=== PATIENT | female | born 1965 | race Caucasian/White ===

== ENCOUNTER 2020-05-25 17:36 | Outpatient (REF) | payer OTHER, SELFPAY ==
--- NOTE | 2020-05-25 | MM_ITS ---
EXAMINATION: MM SCREENING DIGITAL BREAST TOMOSYNTHESIS, BILATERAL CLINICAL INFORMATION: Screening. Asymptomatic. The lifetime risk of breast cancer based on the Tyrer-Cuzick Model is 14.5%. COMPARISON: Mammography: February 05, 2019 and studies dating back to November 01, 2014 TECHNIQUE: Digital breast tomosynthesis is performed in both the craniocaudal and mediolateral oblique views along with computer-aided detection (CAD). Synthesized 2D images are generated from the tomosynthesis. FINDINGS: The breasts are almost entirely fatty (ACR BI-RADS breast composition Category a). There are no significant masses, abnormal calcifications, or other abnormalities. MM/MM tomosynthesis screening BI IMPRESSION: There are no significant changes from prior study. ASSESSMENT: BI-RADS 1: Negative RECOMMENDATION: Routine annual mammography screening. This patient's information was entered into a reminder system with a target due date for their next mammogram.
== END 2020-05-25 17:37 | disposition home or self-care (01) ==
LOC: HO.MAMMO 17:36
PROVIDERS: PCP Internal Medicine; Visit Provider Advanced Practice Midwife
DX: Z12.31 Encounter for screening mammogram for malignant neoplasm of breast (principal)
CPT/HCPCS: 77063; 77067

== ENCOUNTER 2022-12-07 08:43 | Outpatient (REF) | payer OTHER, SELFPAY ==
[2022-12-07 11:07] LABS: Alanine Aminotransferase 13 U/L (0-31); Albumin Level 4.3 g/dL (3.5-5.0); Alkaline Phosphatase 67 U/L (39-117); Anion Gap 13 (12-20); Aspartate Amino Transferase 18 U/L (5-31); Bilirubin Total 0.5 mg/dL (0.0-1.0); Blood Urea Nitrogen 16 mg/dL (9-16); Calcium 10.1 mg/dL (8.4-10.2); Carbon Dioxide 28 mmol/L (22-29); Chloride 103 mmol/L (96-108); Cholesterol 251 mg/dL; Estimated Glomerular Filt Rate > 60; Glucose Fasting 96 mg/dL (60-99); HDL Cholesterol 59 mg/dL; LDL Cholesterol Calculated 175 mg/dl; Potassium 4.1 mmol/L (3.3-5.1); Sodium 140 mmol/L (135-145); Total Protein 7.5 g/dL (6.5-8.0); Triglycerides 89 mg/dL
== END 2022-12-07 08:44 | disposition home or self-care (01) ==
LOC: HO.LAB 08:43
PROVIDERS: PCP Internal Medicine; Visit Provider Internal Medicine
DX: Z00.00 Encounter for general adult medical examination without abnormal findings (principal)
CPT/HCPCS: 36415; 80053; 80061

== ENCOUNTER 2022-12-26 08:23 | Outpatient (REF) | payer OTHER, SELFPAY ==
--- NOTE | ~2022-12-26 | US_ITS ---
EXAMINATION: US ABDOMEN LIMITED CLINICAL INFORMATION: Abdominal mass, left lumbar region. COMPARISON: None available. TECHNIQUE: Real-time imaging of the area indicated by patient, left lumbar area. The area was examined in both the supine and upright position. FINDINGS: No mass, hernia or fluid collection is seen. US/US abdomen limited IMPRESSION: No abnormality is seen.
== END 2022-12-26 08:24 | disposition home or self-care (01) ==
LOC: HO.HMGCX 08:23
PROVIDERS: PCP Internal Medicine; Visit Provider Nurse Practitioner Family
DX: R19.00 Intra-abdominal and pelvic swelling, mass and lump, unspecified site (principal)
CPT/HCPCS: 76705

== ENCOUNTER 2023-02-04 10:25 | Outpatient (AMB) | payer OTHER, SELFPAY ==
[2023-02-04 10:28] VITALS: BMI 28.1
--- NOTE | 2023-02-04 10:28 | A.OFFVIS_ITS ---
Intake Vital Signs 02/04/23 10:28 Height 5 ft 4 in Weight 164 lb BMI 28.1 Intake Visit Reasons: Intra abd & pelvic mass/lump Intake Note: This patient presents for an assessment for intra abdominal and pelvic mass/lump. Patient c/o; reports feeling lump RLQ region, denies pain, reports discomfort when sitting or when it is pressed on. Director Furniture Required: No Accompanied by: Self / Same As Patient Allergies No Known Allergies Allergy (Verified 02/04/23 10:34) HPI HPI Comments History of Present Illness Details Patient presents for evaluation of a left flank deeply situated intramuscular mass. She has had this least 6-7 months time. His increasing size, become more symptomatic. She wished to have this evaluated removed. Chart was reviewed and patient evaluated. [facility] Surgical History History of section History of left oophorectomy History of surgery Family History Father Alcoholism Mother Hypertension Brain tumor Maternal Grandmother Breast cancer Sister Coronary artery disease Brother Coronary artery disease Social History Housing: House Alcohol intake: current Alcohol intake frequency: holidays/special occasions only Alcohol type: beer, wine and hard liquor Patient Tobacco Use Status: Former Tobacco user Tobacco use type: Cigarette e-Cigarette/Vaping Use: Never Used Second Hand Smoke Exposure: No service: No Current occupational status: employed Current occupational exposures/hazards: No Cognitive needs: No Hearing needs: No Vision needs: No Physical Exam Vital Signs: BMI result Body Mass Index 28.1 GI Other: Moderately corpulent abdomen. Left flank demonstrates approximately 6 x 5 cm mass suggestive of a intramuscular lipoma. Assessment & Plan Assessment & Plan (1) Abdominal lump: Code(s): R19.00 - Intra-abdominal and pelvic swelling, mass and lump, unspecified site Plan: Current plan is to obtain MRI to further evaluate this process and rule out a neoplastic mass prior to excision. Orders: Orders MR abdomen wo/w con Today R19.00 - Intra-abdominal and pelvic swelling, mass and lump, unspecified site Coding Level of Care Code New Pt Level 4 (98469) Diagnoses Abdominal lump R19.00
== END 2023-02-04 10:39 | disposition home or self-care (01) ==
PROVIDERS: PCP Internal Medicine; Referring Provider Internal Medicine; Visit Provider Surgery
DX: R19.00 Intra-abdominal and pelvic swelling, mass and lump, unspecified site (principal)
CPT/HCPCS: 99204

== ENCOUNTER → 2023-02-04 10:25 | Outpatient (BNVA) | payer OTHER, SELFPAY | PROVIDERS: PCP Internal Medicine; Referring Provider Internal Medicine; Visit Provider Surgery ==

== ENCOUNTER 2023-03-21 14:09 | Outpatient (REF) | payer OTHER, SELFPAY ==
[2023-03-21 15:29] LABS: Alanine Aminotransferase 15 U/L (0-31); Albumin Level 4.4 g/dL (3.5-5.0); Alkaline Phosphatase 55 U/L (39-117); Anion Gap 18 (12-20); Aspartate Amino Transferase 21 U/L (5-31); Bilirubin Total 0.7 mg/dL (0.0-1.0); Blood Urea Nitrogen 13 mg/dL (9-16); Calcium 10.1 mg/dL (8.4-10.2); Carbon Dioxide 24 mmol/L (22-29); Chloride 98 mmol/L (96-108); Estimated Glomerular Filt Rate > 60; Glucose Fasting 84 mg/dL (60-99); Sodium 136 mmol/L (135-145); Total Protein 7.3 g/dL (6.5-8.0)
== END 2023-03-21 14:10 | disposition home or self-care (01) ==
LOC: HO.CT 14:09
PROVIDERS: Nurse Practitioner Family; PCP Internal Medicine; Visit Provider Surgery
DX: R19.00 Intra-abdominal and pelvic swelling, mass and lump, unspecified site (principal); I10 Essential (primary) hypertension; E78.5 Hyperlipidemia, unspecified
CPT/HCPCS: 36415; 74170; 80053; Q9967

== ENCOUNTER 2023-03-27 13:04 | Outpatient (AMB) | payer OTHER, SELFPAY ==
[2023-03-27 13:15] VITALS: BP 161/91; PULSE 77; BMI 27.6
--- NOTE | 2023-03-27 13:15 | MHC.OFFVIS ---
Intake Vital Signs 03/27/23 13:15 Height 5 ft 4 in Weight 161 lb BMI 27.6 BP 161/91 H Blood Pressure Location Rt brachial Position Sitting Pulse 77 Intake Visit Reasons: Abdominal lump, CT results Intake Note: Patient here to discuss abd ct scan results from 03-21-23. Social Work Case Manager Required: No Accompanied by: Self / Same As Patient Allergies No Known Allergies Allergy (Verified 03/27/23 13:17) HPI HPI Comments History of Present Illness Details Patient presents for follow-up. She has persistence of her left flank mass in discomfort. CT scan is consistent with a left spigelian hernia. [facility] Surgical History History of surgery History of left oophorectomy History of section Family History Father Alcoholism Mother Hypertension Brain tumor Maternal Grandmother Breast cancer Sister Coronary artery disease Brother Coronary artery disease Social History Housing: House Alcohol intake: current Alcohol intake frequency: holidays/special occasions only Alcohol type: beer, wine and hard liquor Patient Tobacco Use Status: Former Tobacco user Tobacco use type: Cigarette e-Cigarette/Vaping Use: Never Used Second Hand Smoke Exposure: No service: No Current occupational status: employed Current occupational exposures/hazards: No Cognitive needs: No Hearing needs: No Vision needs: No Physical Exam Vital Signs: Last Vital Signs Pulse 77 03/27/23 13:15 BP 161/91 H 03/27/23 13:15 BMI result Body Mass Index 27.6 Chest Other: Chest breath sounds bilaterally, HS 1 in 2 GI Other: Abdomen soft, moderately corpulent. Left lower lateral abdominal wall mass consistent with patient's spigelian hernia. Assessment & Plan Assessment & Plan (1) Spigelian hernia: Code(s): K43.9 - Ventral hernia without obstruction or gangrene Plan Patient wishes to undergo repair of this. His become more symptomatic enlarging. Risks, benefits, alternatives of open repair of left spigelian hernia with possible mesh were reviewed the patient and included but not limited to bleeding, infection, recurrence, numbness, pain, scarring the patient wishes to proceed. All questions were answered. Arrangements were made for this. Coding Level of Care Code Est Pt Level 5 (83707) Diagnoses Spigelian hernia K43.9
== END 2023-03-27 13:39 | disposition home or self-care (01) ==
PROVIDERS: PCP Internal Medicine; Visit Provider Surgery
DX: K43.9 Ventral hernia without obstruction or gangrene (principal)
CPT/HCPCS: 99214

== ENCOUNTER → 2023-03-27 13:04 | Outpatient (BNVA) | payer OTHER, SELFPAY | PROVIDERS: PCP Internal Medicine; Visit Provider Surgery ==

== ENCOUNTER 2023-04-10 07:40 | Day surgery (SDC) | payer OTHER, SELFPAY ==
[2023-04-08 10:52] VITALS: BMI 26.8
--- NOTE | 2023-04-09 10:46 | HO.ANESPROP2 ---
Documented by User: Nohemi Saucedo NP 04/09/23 10:47 HPI - Anesthesia Eval Consult details Narrative: 58yo F for Open repair of spigelian hernia w/mesh PMFSH Active Problems Active Problems: All Active Problems (Updated 04/08/23 @ 10:51 by Kamala Benítez RN) Spigelian hernia (Acute) Hyperlipidemia (Acute) Abdominal lump (Acute) Class 1 obesity with body mass index (BMI) of 32.0 to 32.9 in adult (Acute) Mild persistent asthma (Acute) Essential hypertension (Acute) Physical exam (Acute) Past Medical History Medical History Insomnia Asthma OAB (overactive bladder) HTN (hypertension) Family History Family History Father Alcoholism Mother Hypertension Brain tumor Maternal Grandmother Breast cancer Sister Coronary artery disease Brother Coronary artery disease Surgical History Surgical History History of right oophorectomy History of surgery History of left oophorectomy History of section Social History Social History Household Members: Family Housing: House Are you a primary point of care technician to a significant other at home: No Do you presently have visiting nurse or other home services: No Alcohol intake: current Alcohol intake frequency: holidays/special occasions only Alcohol type: beer, wine and hard liquor Patient Tobacco Use Status: Former Tobacco user Quit Date: 22 years Tobacco use type: Cigarette e-Cigarette/Vaping Use: Never Used Second Hand Smoke Exposure: No service: No Current occupational status: employed Current occupational exposures/hazards: No Cognitive needs: No Hearing needs: No Vision needs: No Meds Allergies Allergy/AdvReac Type Severity Reaction Status Date / Time adhesive tape Allergy Intermediate Skin Verified 04/10/23 07:52 blistered Exam Exam Date and Time: April 09, 2023 1046 Height,Weight and Vital Signs: Height 5 ft 4 in Weight 70.76 kg Pertinent Lab Results Pertinent Lab Results: Laboratory Tests 03/21/23 14:16 Sodium 136 Potassium 4.0 Chloride 98 Carbon Dioxide 24 BUN 13 Creatinine 0.73 Assessment and Plan Assessment Anesthesia Assessment: Chart Reviewed Documented by User: Ciarra Morse MD 04/10/23 13:15 PMFSH Active Problems Active Problems: All Active Problems (Updated 04/10/23 @ 08:58 by Ciarra Morse MD) Spigelian hernia (Acute) Hyperlipidemia (Acute) Abdominal lump (Acute) Class 1 obesity with body mass index (BMI) of 32.0 to 32.9 in adult (Acute) Mild persistent asthma (Acute) Essential hypertension (Acute) Physical exam (Acute) ?BIPIN Past Medical History Medical History Insomnia Asthma OAB (overactive bladder) HTN (hypertension) Family History Family History Father Alcoholism Mother Hypertension Brain tumor Maternal Grandmother Breast cancer Sister Coronary artery disease Brother Coronary artery disease Family history of problems with anesthesia: No Surgical History Surgical History History of right oophorectomy History of surgery History of left oophorectomy History of section History of Problems with Anesthesia: No Social History Social History Household Members: Family Housing: House Are you a primary point of care technician to a significant other at home: No Do you presently have visiting nurse or other home services: No Alcohol intake: current Alcohol intake frequency: holidays/special occasions only Alcohol type: beer, wine and hard liquor Patient Tobacco Use Status: Former Tobacco user Quit Date: 22 years Tobacco use type: Cigarette e-Cigarette/Vaping Use: Never Used Second Hand Smoke Exposure: No service: No Current occupational status: employed Current occupational exposures/hazards: No Cognitive needs: No Hearing needs: No Vision needs: No Meds Allergies Allergy/AdvReac Type Severity Reaction Status Date / Time adhesive tape Allergy Intermediate Skin Verified 04/10/23 07:52 blistered Exam Height,Weight and Vital Signs: Height 5 ft 4 in Weight 70.76 kg Vital Signs Temp Pulse Resp BP Pulse Ox O2 Del Method 97.2 F 65 16 163/91 H 98 Room Air 04/10/23 08:01 04/10/23 08:01 04/10/23 08:01 04/10/23 08:01 04/10/23 08:01 04/10/23 08:01 Airway Mallampati Class: II TM Dist: >3cm Neck ROM: Full Loose/Missing/Broken Teeth: No (Denies broken, loose, missing teeth) Heart: RRR Lungs: CTAB Assessment and Plan Assessment Anesthesia Assessment: Anesthesia Plan Discussed Final Anesthetic Review Family History of Problems with Anesthesia: No History of Problems with Anesthesia: No NPO: Yes ASA Class: II Final Preanesthetic Review: No Changes in Pt Med Stat, Meds/Allgs Chart Reviewed, Consent Obtained/Reviewed and Anes Risks/Benef Reviewed Patient Risk: Intermediate Procedure Risk: Low Assessment/Block/Sedation in SS: Assess/Block/Sedation-SS Anesthetic Plan Anesthetic Plan: GA and MAC: Disposition: Standard PACU
--- NOTE | 2023-04-09 13:32 | MHC.SHP ---
Pre-Procedural Eval Section A Date of Service: 04/09/23 The patient is an INPATIENT: No Changes since office visit: No Cold of Flu in the past 2 weeks, No New Medical Problems, No Changes in Medication and No Patient answered all questions The History & Physical has been completed within 30 days and I have reviewed it.: Yes Section B Chief Complaint: Ventral hernia without obstruction or gangrene Allergies: Allergies Allergy/AdvReac Type Severity Reaction Status Date / Time adhesive tape Allergy Intermediate Skin Verified 04/08/23 10:59 blistered Plan I have reviewed the history and physical and performed a pertinent physical examination on my patient. No changes have occurred unless specified. Time Spent With Patient Time: Total time managing care of this patient today ____ minutes.
[2023-04-10 07:47] VITALS: BMI 26.6
[2023-04-10 08:01] VITALS: BP 163/91; PULSE 65; RESP 16; TEMP 36.2; O2SAT 98
[2023-04-10] MEDS: Lactated Ringers 1,000 ML 100 ML IVCONT (08:12)
[2023-04-10 10:32] VITALS: BP 143/76; PULSE 61; RESP 14; TEMP 36.1; O2SAT 97
[2023-04-10 10:37] VITALS: BP 151/73; PULSE 54; RESP 16; O2SAT 99
[2023-04-10 10:42] VITALS: BP 172/82; PULSE 49; RESP 16; O2SAT 99
[2023-04-10] MEDS: Acetaminophen 325 MG TABLET 650 MG PO (10:44)
[2023-04-10] MEDS: oxyCODONE HCl Immed Release 5 MG TABLET 10 MG PO (10:45)
[2023-04-10 10:47] VITALS: BP 175/87; PULSE 54; RESP 16; O2SAT 99
--- NOTE | 2023-04-10 10:57 | W.PM.OPN ---
Operative Note Operative Note Date of Service: 04/10/23 Narrative: Preoperative diagnosis: [] Left lower abdomen incarcerated spigelian hernia Postop diagnosis: [] Same Procedure [] open repair of spigelian hernia with Bard mesh Surgeon: [] Brandt Graphics Manager: [] Derick Type of Anesthesia: [] General Indication for surgery: [] Left lower quadrant incarcerated spigelian hernia with omental contents. Defect measured approximately 4 cm. Findings: [] Patient brought to the operating room, placed on operative table in supine position, after adequate level of general anesthesia was induced, the patient's abdomen was prepped and draped in usual sterile fashion. Using a transverse incision over the left lower quadrant over the spigelian hernia, this carried down through skin, subcutaneous tissue, dissection down to the external oblique muscle. Fascia margins were where large hernia sac with incarcerated omental contents was found. This was circumferentially dissected down and opened. Incarcerated omentum was amputated using clamp, 2-0 ties along with hernia sac which was amputated using Bovie. Margins were circumferentially cleared. A Bard mesh was placed in this defect and the superficial layer of the mesh was circumferentially sutured to the surrounding abdominal wall structures using interrupted 0 Ethibond sutures. At completion the procedure, mesh was in good position with no gaps or tension. Wounds irrigated, secured hemostasis. Was closed in the following manner; running 2-0 Vicryl suture used to reapproximate external oblique muscle. Interrupted inverted deep dermal 3-0 Vicryl sutures followed by running subcuticular 4-0 Vicryl suture placed. Steri-Strips and sterile dressings were applied. Wound was infiltrated 0.5% Marcaine/1% lidocaine at completion. Sponge, needle, and instrument counts reported correct. Patient tolerated the procedure well and emerged anesthesia stable condition. EBL minimal
[2023-04-10 11:02] VITALS: BP 164/89; PULSE 51; RESP 16; TEMP 36.1; O2SAT 98
== END 2023-04-10 11:37 | disposition home or self-care (01) ==
PROVIDERS: PCP Internal Medicine; Visit Provider Surgery
PROC: (CPT 49594; principal; 2023-04-10 09:30)
DX: K43.6 Other and unspecified ventral hernia with obstruction, without gangrene (principal); I10 Essential (primary) hypertension; E78.5 Hyperlipidemia, unspecified; J45.30 Mild persistent asthma, uncomplicated; E66.8 Other obesity; Z68.27 Body mass index [BMI] 27.0-27.9, adult; L23.1 Allergic contact dermatitis due to adhesives; Z87.891 Personal history of nicotine dependence
CPT/HCPCS: 49594; 88302; C1781; J0690; J1885; J2405; J3010

== ENCOUNTER → 2023-04-10 07:40 | Outpatient (BNV) | payer OTHER, SELFPAY | PROVIDERS: PCP Internal Medicine; Visit Provider Surgery | DX: K43.6 Other and unspecified ventral hernia with obstruction, without gangrene (principal) | CPT/HCPCS: 49616 ==

== ENCOUNTER 2023-04-22 08:47 | Outpatient (AMB) | payer OTHER, SELFPAY ==
[2023-04-22 08:58] VITALS: BP 202/102; PULSE 67
--- NOTE | 2023-04-22 08:58 | A.OFFVIS_ITS ---
Intake Vital Signs 04/22/23 08:58 Weight 163 lb BP 202/102 H Blood Pressure Location Rt brachial Position Sitting Pulse 67 Intake Visit Reasons: S/p repair of left spigelian hernia Intake Note: Patient here s/p repair Lt spigelian hernia. Reports incision healing well. Denies bleeding, oozing, itch. [facility] Director Required: No Accompanied by: Self / Same As Patient Allergies adhesive tape Allergy (Intermediate, Verified 04/22/23 09:00) Skin blistered HPI HPI Comments History of Present Illness Details Patient presents for follow-up. She has no wound issues or complaints. She is increasing her activity level. Patient is tolerating her diet. She is having regular bowel habits. COUNT INCLUDES THE [facility] Medical History Insomnia Asthma OAB (overactive bladder) HTN (hypertension) Surgical History Spigelian hernia (04/10/23) History of right oophorectomy History of surgery History of left oophorectomy History of section Family History Father Alcoholism Mother Hypertension Brain tumor Maternal Grandmother Breast cancer Sister Coronary artery disease Brother Coronary artery disease Social History Household Members: Family Housing: House Are you a primary intensive care unit registered nurse to a significant other at home: No Do you presently have visiting nurse or other home services: No Alcohol intake: current Alcohol intake frequency: holidays/special occasions only Alcohol type: beer, wine and hard liquor Patient Tobacco Use Status: Former Tobacco user Quit Date: 22 years Tobacco use type: Cigarette e-Cigarette/Vaping Use: Never Used Second Hand Smoke Exposure: No service: No Current occupational status: employed Current occupational exposures/hazards: No Cognitive needs: No Hearing needs: No Vision needs: No Physical Exam Vital Signs: Last Vital Signs Pulse 67 04/22/23 08:58 BP 202/102 H 04/22/23 08:58 GI Other: Abdomen soft, benign. Wound healing very well. Assessment & Plan Assessment & Plan (1) Spigelian hernia: Onset Date: 04/10/23 Comment: Dr. Renard Carlton Code(s): K43.9 - Ventral hernia without obstruction or gangrene Plan Patient does not have light duty at her place of employment. Will keep her up for a full 6 weeks total for convalescence and wound healing. She will otherwise follow up p.r.n.. Coding Level of Care Code Global (84118) Diagnoses Spigelian hernia K43.9
== END 2023-04-22 09:05 | disposition home or self-care (01) ==
PROVIDERS: PCP Internal Medicine; Visit Provider Surgery
DX: K43.9 Ventral hernia without obstruction or gangrene (principal)
CPT/HCPCS: 99212

== ENCOUNTER → 2023-04-22 08:47 | Outpatient (BNVA) | payer OTHER, SELFPAY | PROVIDERS: PCP Internal Medicine; Visit Provider Surgery ==

== ENCOUNTER 2024-08-27 15:01 | Outpatient (AMB) | payer OTHER, SELFPAY ==
--- NOTE | 2024-08-27 15:05 | A.OFFPC_ITS ---
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 Accompanied by: Self / Same As Patient Allergies adhesive tape Allergy (Intermediate, Verified 08/27/24 15:24) Skin blistered Medication List - Last Reconciled 08/27/24 by Luciana Quiroz MD albuterol sulfate 90 mcg/actuation 2 puffs inhalation Q6H PRN 30 days hydrochlorothiazide 25 mg PO QAM oxybutynin chloride ER 10 mg PO DAILY 90 days zolpidem 5 mg PO BEDTIME PRN 30 days Tobacco use date assessed: 08/27/24 Dental Screening Dental Screen Date: 08/27/24 Did you have a dental visit in the last 12 months?: Yes Did you have a dental problem in the last 6 months where you did not have access to dental care?: No Was dental information given to patient?: Patient has dentist HPI HPI Comments History of Present Illness Details The patient is a 59-year-old female presenting with an annual physical examination and health maintenance. She has a history of essential hypertension, which she manages with hydrochlorothiazide 25 mg. Her blood pressure ranges from 128/84 mmHg to occasional higher readings of 150/?. She monitors her blood pressure regularly at home. The patient is allergic to adhesive tape. 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 She discontinued oxybutynin as it caused excessive thirst, and she no longer takes this m edication. She reports insomnia managed with sulpirin 5 mg as needed and occasional use of a rescue inhaler for allergies. The patient experienced a loss of voice approximately two weeks ago. - Discussed need for mammogram screening as last performed in 2019. - Scheduled blood tests as part of the [facility] maintenance visit. - Scheduled colonoscopy due to her last one being approximately 10 years ago. - Recommended the Tdap (tetanus, diphthe joseluis, pertussis) vaccine due to the last vaccination being in 2011. - Discussed need for bone densitometry i n two years. 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) History of right oophorectomy History of surgery History of left oophorectomy History of section Family History Father Alcoholism Substance use disorder Mother Hypertension Brain tumor Maternal Grandmother Breast cancer Sister Coronary artery disease Brother Coronary artery disease Social History Household Members: Family Housing: House Are you a primary childcare teacher to a significant other at home: No Do you presently have visiting nurse or other home services: No Alcohol intake: current Alcohol intake frequency: holidays/special occasions only Alcohol type: beer, wine and hard liquor Patient Tobacco Use Status: Former Tobacco user Tobacco use type: Cigarette e-Cigarette/Vaping Use: Never Used Second Hand Smoke Exposure: No service: No Current occupational status: employed Current occupational exposures/hazards: No Cognitive needs: No Hearing needs: No Vision needs: No Questionnaire PHQ-9 Over the last 2 weeks, how often have you been bothered by any of the following problems? 1. Little interest or pleasure in doing things: not at all 2. Feeling down, depressed, or hopeless: not at all 3. Trouble falling or staying asleep, or sleeping too much: several days 4. Feeling tired or having little energy: not at all 5. Poor appetite or overeating: not at all 6. Feeling bad about yourself - or that you are a failure or have let yourself or your family down: not at all 7. Trouble concentrating on things, such as reading the newspaper or watching television: not at all 8. Moving or speaking so slowly that other people could have noticed. Or the opposite - being so fidgety or restless that you have been moving around a lot more than usual: not at all 9. Thoughts that you would be better off or of hurting yourself in some way: not at all Total score: 1 Depression Screening Interpretation: Negative Depression Screening Done: Yes 22693 - PHQ-9 Billing: Yes Source: Developed by Drs. Keron L. IvanJuli davis, Darius Murrell and colleagues, with an educational jose from [employer] Thrive Questionnaire Date Thrive assessed: 08/27/24 I am a: Patient What is your living situation today?: I have a steady place to live Within the past 12 months, did the food you bought not last and you didn't have the money to get more?: Never true Within the past 12 months, did you worry whether your food would run out before you got money to buy more?: Never true Do you have trouble paying for medicines?: No Do you have trouble getting transportation to medical appointments?: No Do you have trouble paying your heating and electricity bill?: No Do you have trouble taking care of your child, family member or friend?: No Do you have trouble with day-to-day activities such as bathing, preparing meals, shopping, managing finances, etc.?: No Are you currently unemployed and looking for a job?: No Are you interested in more education?: No Please select the resources that you would like help with: None Currently or been in a relationship where the following occur: No concerns reported THRIVE Score: 0 AUDIT C Alcohol Use Questionnaire (AUDIT-C) 1. How often do you have a drink containing alcohol?: 2-4 times a month 2. How many drinks containing alcohol do you have on a typical day when you are drinking?: 3 or 4 3. How often do you have six or more drinks on one occasion?: Never Total Score: 3 Score Reviewed/Action Taken: No JURGEN-7 AMB Questionnaire JURGEN-7 Date JURGEN - 7 assessed: 08/27/24 Feeling nervous, anxious, or on edge: 0 = Not at all Not being able to stop or control worryin = Not at all Worrying too much about different things: 0 = Not at all Trouble relaxin = Not at all Being so restless that it is hard to sit still: 0 = Not at all Becoming easily annoyed or irritable: 0 = Not at all Feeling afraid as if something awful might happen: 0 = Not at all Total JURGEN-7 score (0-4 normal; 5-9 mild; 10-14 moderate; 15-21 severe): 0 Source: Developed by Juli Mcgregor Kurt Kroenke and colleagues, with an educational jose from [employer] JURGEN-7 Assessment Billing JURGEN-7 Assessment Tool: JURGEN-7 Assessment 16470 Review of Systems Const All systems reviewed & are unremarkable except as noted in HPI and below Card Denies chest pain at rest, Denies chest pain with activity, Denies edema, Denies irregular heart rhythm, Denies claudication, Denies dyspnea, Denies dyspnea on exertion, Denies orthopnea, Denies paroxysmal nocturnal dyspnea and Denies slow heart rate Resp Denies cough, Denies dyspnea and Denies dyspnea on exertion GI Denies abdominal pain, Denies change in bowel habits, Denies excessive flatus, Denies nausea and Denies vomiting Denies urinary incontinence, Denies urinary hesitancy and Denies urinary urgency Physical exam (Primary Care) Vital Signs: Last Vital Signs BP 148/90 H 08/27/24 15:06 BMI result Body Mass Index 31.6 BMI Assessment/Plan discussion: High BMI High, discussed plan: lifestyle, weight reduction, dietary and physical activity Tobacco/Smoking Status: Tobacco use Status Tobacco use date assessed 08/27/24 08/27/24 15:11 Patient Tobacco Use Status Former Tobacco user 08/27/24 15:11 Tobacco use type Cigarette 08/27/24 15:11 e-Cigarette/Vaping Use Never Used 08/27/24 15:11 PHQ-9: PHQ-9 Score PHQ-9: Total score 1 08/27/24 16:00 Depression Screening Interpretation: Negative Thrive Assessment: Date of Thrive Assessment Date Thrive assessed 08/27/24 08/27/24 15:11 Currently or been in a relationship where the following occur: No concerns reported [facility] Head: Yes normal to inspection, Yes normocephalic and Yes atraumatic Ears: external ears normal Eyes General: appearance normal, both eyes and all related structures Eyelids: Yes eyelids normal Conjunctivae: conjunctivae normal Neck Neck: Yes normal visual inspection and Yes supple Resp Effort & Inspection: normal respiratory effort Auscultation: clear to auscultation bilaterally Cardio Jugular venous distension: no JVD Rate: regular rate Rhythm: regular rhythm Heart sounds: S1 normal heart sound present and S2 normal heart sound present GI Inspection: Yes normal to inspection Palpation (GI): Soft to palpation and nontender Auscultation: normal bowel sounds Skin General skin exam: no rashes or lesions noted Neuro General: no focal motor deficits Extrem General: Yes full ROM Psych Appearance: grossly normal Immunizations Boostrix Tdap 2.5 Lf unit-8 mcg-5 Lf/0.5 mL intramuscular syringe Performing Provider: Luciana Quiroz MD [facility] Administered by: Shazia Aaron LPN on 08/27/24 15:59 Dose Route Admin Location Dispensed Lot Number Expiration Date [place] Vascular Ultrasound Technologist 0.5 mL IM Left Deltoid 0.5 mL [id number] 10/03/26 84045-421-12 [employer] VIS Given Date VIS Provided VIS Publication Date 08/27/24 Single Vaccine 21 Eligibility Eligibility Date Funding Source Not [facility] Eligible 08/27/24 Private Coding Level of Care Code Est Pt Prev Care 40-64y(36251) Diagnoses Physical exam Z00.00 Additional Codes JURGEN-7 Assessment Billing - JURGEN-7 Assessment Tool: JURGEN-7 Assessment 09908 ([id number]) PHQ-9 - 75626 - PHQ-9 Billing: Yes ([id number]) Time Spent (min) 31 Assessment & Plan Assessment & Plan (1) Physical exam: Code(s): Z00.00 - Encounter for general adult medical examination without abnormal findings Category: Medical Plan Bone densitometry is planned in two years. Counseling on lifestyle modifications includes moderating alcohol intake and continued non-smoking efforts. We will support her in securing an OBGYN and primary care for her daughter.: Patient was informed and verbally consented to the use of an ambient scribe for clinic note documentation during this visit. During the visit, I reviewed the patient?s need for health maintenance screenings and vaccinations. We discussed the benefits of continued hypertensive management and lifestyle modifications to minimize cardiovascular risks. The necessity of regular mammograms, blood tests, and colonoscopies was emphasized. I recommended receiving the Tdap vaccine and planned the timing for a future bone densitometry. The patient reported satisfaction with the management plan for her chronic conditions and agreed to follow-up for health and preventive care, acknowledging the importance of timely preventive measures. We discussed her intent to find a new OBGYN and a primary healthcare provider for her daughter, to which referrals will be provided. Orders: Orders MM tomosynthesis screening BI 08/27/24 Z12.31 - Encounter for screening mammogram for malignant neoplasm of breast [facility]. Panel Fast 08/27/24 Z00.00 - Encounter for general adult medical examination without abnormal findings TDaP Immunization 08/27/24 Z23 - Encounter for immunization Lipid Panel 08/27/24 E78.5 - Hyperlipidemia, unspecified, Z00.00 - Encounter for general adult medical examination without abnormal findings Referrals Open Access Screening Colonoscopy Referral Z12.12 - Encounter for screening for malignant neoplasm of rectum Medications: Discontinued oxybutynin chloride ER Discontinued Reason: Patient Completed Course 10 mg PO DAILY 90 days 90 tabs 0RF Patient Instructions: - Continue monitoring blood pressure regularly at home. - Schedule and attend mammogram. - Undergo scheduled blood work. - Prepare for the colonoscopy, as advised by the scheduling call. - Obtain the Tdap vaccination today. - Seek OBGYN for routine care as needed. - Maintain moderation in alcohol consumption, and continue smoking cessation efforts. - Arrange primary care provider for daughter's healthcare needs. - Contact the practice with any new health concerns or symptoms.
[2024-08-27 15:06] VITALS: BP 148/90; BMI 31.6
--- OUTSIDE RECORDS SUMMARY | 2024-08-27 18:45 | XMS_ITS | Clinical Summary ---
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 Name Role Phone Ivon Todd MD Primary Care Provider [phone] Social History Tobacco Use Types Packs/Day Years Used Date Smoking Tobacco: Never Assessed Comments Unknown Sex and Gender Information Value Date Recorded Sex Assigned at Not on file Legal Sex Female 8:08 AM EST Gender Identity Not on file Sexual Orientation Not on file Plan of Treatment Health Maintenance Due Date Last Done Comments Cervical Cancer Screening: P ap Smear 01/05/1985 Zoster Vaccines (1 of 2) 01/05/2014 Pneumococcal Vaccine: 50+ Years (2 of 2 - PCV) 11/18/2014 11/18/2013 Breast Cancer Screening 02/07/2019 02/07/2017 DTaP,Tdap,and Td Vaccines (2 - Td or Tdap) 07/26/2021 07/26/2011 COVID-19 Vaccine ( - 2023-2 5 season) 2024 Influenza Vaccine (#1) 2024 0, 03/22/2007 RSV Immunization Patients 60 + Years Old (1 - 1-dose 75+ series) 01/05/2039 Pneumococcal Vaccine: Pediatrics (0 to 5 Years) and At-Risk Patients (6 to 64 Years) Aged Out 11/18/2013 No longer eligible b ased on patient's age to complete this topic HIB Vaccines Aged Out No longer eligi ble based on patient's age to complete this topic HPV Vaccines Aged Out No longer eligi ble based on patient's age to complete this topic Hepatitis A Vaccines Aged Out No long er eligible based on patient's age to complete this topic Hepatitis B Vaccines Aged Out No long er eligible based on patient's age to complete this topic IPV Vaccines Aged Out No longer eligi ble based on patient's age to complete this topic MMR Vaccines Aged Out No longer eligi ble based on patient's age to complete this topic Meningococcal ACWY Vaccine Aged Out N o longer eligible based on patient's age to complete this topic Meningococcal B Vacine Aged Out No lo nger eligible based on patient's age to complete this topic RSV Immunization Patients Under 20 months Aged Out No longer eligible b ased on patient's age to complete this topic Varicella Vaccines Aged Out No longer eligible based on patient's age to complete this topic Procedures Procedure Name Priority Date/Time Associated Diagnosis Comments SCR MAMMO BI INCL CAD Routine 02/07/2017 4:36 PM EDT Encounter for screening mammogram for malignant neoplasm of breast from Last 3 Months or Most Recently Relevant to Health Maintenance Results * SCR MAMMO BI INCL CAD (02/07/2017 4:36 PM EDT) Anatomical Region Laterality Modality Radiographic Lianne ging 01/23/2016 3:47 PM EDT Narrative 02/08/2017 1:49 PM EDT This is a summary report. The complete report is available in the patient's medical record. If you cannot access the medical record, please contact the sending organization for a detailed fax or copy. Full field digital screening mammography, reviewed with CAD and compared to previous. ??The breasts are composed of fatty and fibroglandular tissue. ??No suspicious mass, architectural distortion or suspicious calcifications are identified. IMPRESSION: : No mammographic evidence of malignancy. BIRADS 1-Negative; N. 5 year breast cancer risk assessment 1.5 % Lifetime breast cancer risk assessment 11.6 % Breast cancer risk category Low (<15%) Procedure Note Coco Allen MD - 07/22/2023 This is a summary report. The complete report is available in thepatient's medical record. If you cannot access the medical record, pleasecontact the sending organization for a detailed fax or copy. Full field digital screening mammography, reviewed with CAD and comparedto previous. The breasts are composed of fatty and fibroglandular tissue.No suspicious mass, architectural distortion or suspicious calcificationsare identified. IMPRESSION: : No mammographic evidence of malignancy. BIRADS 1-Negative; N. 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
== END 2024-08-27 15:57 | disposition home or self-care (01) ==
LOC: HO.HMCH 15:02
PROVIDERS: PCP Internal Medicine; Visit Provider Internal Medicine
DX: Z23 Encounter for immunization (principal)

== ENCOUNTER → 2024-08-27 15:01 | Outpatient (BNVA) | payer OTHER, SELFPAY | PROVIDERS: PCP Internal Medicine; Visit Provider Internal Medicine | DX: Z00.00 Encounter for general adult medical examination without abnormal findings (principal); Z23 Encounter for immunization | CPT/HCPCS: 90471; 90715; 96127 ==

== ENCOUNTER 2024-09-03 13:04 | Outpatient (REF) | payer OTHER, SELFPAY ==
[2024-09-03 15:10] LABS: Alanine Aminotransferase 22 U/L (0-31); Albumin Level 4.4 g/dL (3.5-5.0); Alkaline Phosphatase 63 U/L (39-117); Anion Gap 11 (12-20); Aspartate Amino Transferase 24 U/L (5-31); Bilirubin Total 0.5 mg/dL (0.0-1.0); Blood Urea Nitrogen 14 mg/dL (9-16); Calcium 9.5 mg/dL (8.4-10.2); Carbon Dioxide 28 mmol/L (22-29); Chloride 101 mmol/L (96-108); Cholesterol 251 mg/dL (<200); Estimated Glomerular Filt Rate > 60; Glucose Fasting 90 mg/dL (60-99); HDL Cholesterol 55 mg/dL (>40); LDL Cholesterol Calculated 167 mg/dL (<100); Potassium 3.4 mmol/L (3.3-5.1); Sodium 137 mmol/L (135-145); Total Protein 7.9 g/dL (6.5-8.0); Triglycerides 145 mg/dL (<150)
== END 2024-09-03 13:05 | disposition home or self-care (01) ==
LOC: HO.LAB 13:04
PROVIDERS: PCP Internal Medicine; Visit Provider Internal Medicine
DX: Z00.00 Encounter for general adult medical examination without abnormal findings (principal); E78.5 Hyperlipidemia, unspecified
CPT/HCPCS: 36415; 80053; 80061

== ENCOUNTER 2025-03-01 13:14 | Outpatient (AMB) | payer OTHER, SELFPAY ==
--- NOTE | 2025-03-01 13:23 | A.OFFPC_ITS ---
Vital Signs 03/01/25 13:23 03/01/25 13:24 Height 5 ft 4 in 5 ft 4 in Weight 178 lb 2 oz BMI 30.6 BP 140/90 H Blood Pressure Location Lt brachial Lt brachial Position Sitting Sitting Respiration 18 Pulse 70 Pulse Source Pulse Oximeter Pulse Oximeter Temp 97.1 F Temp Source Temporal Artery Scan Pulse Oximetry (%) 95 Oxygen Delivery Method Room Air Room Air Intake Visit Reasons: bp Chief Radiologic Technologist Required: No Accompanied by: Self / Same As Patient Allergies adhesive tape Allergy (Intermediate, Verified 03/01/25 13:37) Skin blistered Medication List - Last Reconciled 03/01/25 by Luciana Quiroz MD albuterol sulfate 90 mcg/actuation 2 puffs inhalation Q6H PRN 30 days hydrochlorothiazide 25 mg PO QAM zolpidem 5 mg PO BEDTIME PRN 30 days Tobacco use date assessed: 03/01/25 Dental Screening Dental Screen Date: 08/27/24 Did you have a dental visit in the last 12 months?: Yes Did you have a dental problem in the last 6 months where you did not have access to dental care?: No Was dental information given to patient?: Patient has dentist HPI HPI Comments History of Present Illness Details This is a 60-year-old female with hypertension and hyperlipidemia that comes today for follow-up on blood pressure. Blood pressure borderline normal to elevated but at home is less than 130/80 as per patient. No side effects from medication. Has elevated cholesterol but her [place] risk score is 5.1% therefore no need for statins. Was advised to do a low-cholesterol diet. 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) History of right oophorectomy History of surgery History of left oophorectomy History of section Family History Father Alcoholism Substance use disorder Mother Hypertension Brain tumor Maternal Grandmother Breast cancer Sister Coronary artery disease Brother Coronary artery disease Social History Household Members: Family Housing: House Are you a primary resident care manager to a significant other at home: No Do you presently have visiting nurse or other home services: No Alcohol intake: current Alcohol intake frequency: holidays/special occasions only Alcohol type: beer, wine and hard liquor Patient Tobacco Use Status: Former Tobacco user Tobacco use type: Cigarette e-Cigarette/Vaping Use: Never Used Second Hand Smoke Exposure: No service: No Current occupational status: employed Current occupational exposures/hazards: No Cognitive needs: No Hearing needs: No Vision needs: No Questionnaire PHQ-9 Over the last 2 weeks, how often have you been bothered by any of the following problems? 1. Little interest or pleasure in doing things: not at all 2. Feeling down, depressed, or hopeless: not at all 3. Trouble falling or staying asleep, or sleeping too much: several days 4. Feeling tired or having little energy: not at all 5. Poor appetite or overeating: not at all 6. Feeling bad about yourself - or that you are a failure or have let yourself or your family down: not at all 7. Trouble concentrating on things, such as reading the newspaper or watching television: not at all 8. Moving or speaking so slowly that other people could have noticed. Or the opposite - being so fidgety or restless that you have been moving around a lot more than usual: not at all 9. Thoughts that you would be better off or of hurting yourself in some way: not at all Total score: 1 Depression Screening Interpretation: Negative Depression Screening Done: Yes 78357 - PHQ-9 Billing: Yes Source: Developed by Drs. Keron Love, Juli Barclay, Darius Murrell and colleagues, with an educational jose from [employer]. Thrive Questionnaire Date Thrive assessed: 03/01/25 I am a: Patient What is your living situation today?: I have a steady place to live Within the past 12 months, did the food you bought not last and you didn't have the money to get more?: Never true Within the past 12 months, did you worry whether your food would run out before you got money to buy more?: Never true Do you have trouble paying for medicines?: No Do you have trouble getting transportation to medical appointments?: No Do you have trouble paying your heating and electricity bill?: No Do you have trouble taking care of your child, family member or friend?: No Do you have trouble with day-to-day activities such as bathing, preparing meals, shopping, managing finances, etc.?: No Are you currently unemployed and looking for a job?: No Are you interested in more education?: No Please select the resources that you would like help with: None Currently or been in a relationship where the following occur: No concerns reported THRIVE Score: 0 AUDIT C Alcohol Use Questionnaire (AUDIT-C) 1. How often do you have a drink containing alcohol?: 2-4 times a month 2. How many drinks containing alcohol do you have on a typical day when you are drinking?: 3 or 4 3. How often do you have six or more drinks on one occasion?: Never Total Score: 3 Score Reviewed/Action Taken: No JURGEN-7 AMB Questionnaire JURGEN-7 Date JURGEN - 7 assessed: 03/01/25 Feeling nervous, anxious, or on edge: 0 = Not at all Not being able to stop or control worryin = Not at all Worrying too much about different things: 0 = Not at all Trouble relaxin = Not at all Being so restless that it is hard to sit still: 0 = Not at all Becoming easily annoyed or irritable: 0 = Not at all Feeling afraid as if something awful might happen: 0 = Not at all Total JURGEN-7 score (0-4 normal; 5-9 mild; 10-14 moderate; 15-21 severe): 0 Source: Developed by Drs. Keron Love, Juli Barclay, Darius Murrell and colleagues, with an educational jose from [employer]. JURGEN-7 Assessment Billing JURGEN-7 Assessment Tool: JURGEN-7 Assessment 18126 Review of Systems Const All systems reviewed & are unremarkable except as noted in HPI and below Card Denies chest pain at rest, Denies chest pain with activity, Denies edema, Denies irregular heart rhythm, Denies claudication, Denies dyspnea, Denies dyspnea on exertion, Denies orthopnea, Denies paroxysmal nocturnal dyspnea and Denies slow heart rate Resp Denies cough, Denies dyspnea and Denies dyspnea on exertion GI Denies abdominal pain, Denies change in bowel habits, Denies excessive flatus, Denies nausea and Denies vomiting Physical exam (Primary Care) Vital Signs: Last Vital Signs Temp 97.1 F 03/01/25 13:24 Pulse 70 03/01/25 13:24 Resp 18 03/01/25 13:24 BP 140/90 H 03/01/25 13:24 Pulse Ox 95 03/01/25 13:24 Oxygen Delivery Method Room Air 03/01/25 13:24 BMI result Body Mass Index 30.6 Tobacco/Smoking Status: Tobacco use Status Tobacco use date assessed 03/01/25 03/01/25 13:24 Patient Tobacco Use Status Former Tobacco user 03/01/25 13:24 Tobacco use type Cigarette 03/01/25 13:24 e-Cigarette/Vaping Use Never Used 03/01/25 13:24 PHQ-9: PHQ-9 Score PHQ-9: Total score 1 03/01/25 13:30 Depression Screening Interpretation: Negative Thrive Assessment: Date of Thrive Assessment Date Thrive assessed 03/01/25 03/01/25 13:30 Currently or been in a relationship where the following occur: No concerns reported Resp Effort & Inspection: normal respiratory effort Auscultation: clear to auscultation bilaterally Cardio Jugular venous distension: no JVD Rate: regular rate Rhythm: regular rhythm Heart sounds: S1 normal heart sound present and S2 normal heart sound present Extrem General: Yes full ROM Coding Level of Care Code Est Pt Level 3 (83561) Complex EM visit Add On G2211 Diagnoses Essential hypertension I10 Hyperlipidemia E78.5 Additional Codes PHQ-9 - 76346 - PHQ-9 Billing: Yes ([id number]) JURGEN-7 Assessment Billing - JURGEN-7 Assessment Tool: JURGEN-7 Assessment [id number] ([id number]) Time Spent (min) 19 Assessment & Plan Assessment & Plan (1) Essential hypertension: Code(s): I10 - Essential (primary) hypertension Category: Medical (2) Hyperlipidemia: Code(s): E78.5 - Hyperlipidemia, unspecified Category: Medical Plan Continue current meds. Blood pressure goal is equal or less than 130/80. Start low-cholesterol diet. Repeat lipid panel in 6 months. Orders: Orders Lipid Panel 6 Months E78.5 - Hyperlipidemia, unspecified Comprehensive [place]. Panel Fast 6 Months E78.5 - Hyperlipidemia, unspecified
[2025-03-01 13:24] VITALS: BP 140/90; PULSE 70; RESP 18; TEMP 36.2; O2SAT 95; BMI 30.6
--- OUTSIDE RECORDS SUMMARY | 2025-03-01 18:23 | XMS_ITS | Clinical Summary ---
Author Organization [facility] Address [address] [place] [address] Care Team Providers Care Swing Manager Name Role Phone Ivon Todd MD Primary Care Provider [phone] Social History Tobacco Use Types Packs/Day Years [...] (2 - Td or Tdap) 07/26/2021 07/26/2011 Depression Screening 06/17/2024 COVID-19 Vaccine ( - 2023-2 5 season) 2025 Influenza Vaccine (#1) 2025 0, 03/22/2007 RSV Immunization Adult Patients (1 - 1-dose 75+ series) 01/05/2039 HIB Vaccines Aged Out No longer eligi [...] age to complete this topic Meningococcal B Vaccine Aged Out No l onger eligible based on patient's age to complete [...] reviewed with CAD and compared to previous. The breasts are composed of fatty and fibroglandular tissue. No suspicious mass, architectural distortion or suspicious calcifications [...] % Breast cancer risk category Low (<15%) us Sofia Eden MD IMG XR PROCEDURES Final Result from Last 3 Months or Most Recently Relevant to Health Maintenance Care Teams Swing Manager Relationship Specialty Start Date End Date Ivon Todd MD [address] [place] [id number] PCP - General 08/15/05
== END 2025-03-01 13:48 | disposition home or self-care (01) ==
LOC: HO.HMCH 13:15
PROVIDERS: PCP Internal Medicine; Visit Provider Internal Medicine
DX: I10 Essential (primary) hypertension (principal); E78.5 Hyperlipidemia, unspecified

== ENCOUNTER → 2025-03-01 13:14 | Outpatient (BNVA) | payer OTHER, SELFPAY | PROVIDERS: PCP Internal Medicine; Visit Provider Internal Medicine | DX: I10 Essential (primary) hypertension (principal); E78.5 Hyperlipidemia, unspecified | CPT/HCPCS: 96127 ==